=== PATIENT | male | born 1975 | race Caucasian/White ===

== ENCOUNTER 2016-12-30 17:31 | Emergency (ER) | payer MEDICAID ==
[2016-12-30] MEDS ORDERED: LORazepam 0.5 MG TABLET PO STA ×2 (19:03→19:04)
[2016-12-30] MEDS ORDERED: cloNIDine 0.1 MG TABLET PO STA (19:04)
[2016-12-30] MEDS ORDERED: ONDANSETRON ODT 4 MG Prepack 2 TL PRN (19:04)
[2016-12-30] MEDS ORDERED: PROMETHAZINE 25 MG TABLET PO STA (19:04)
--- NOTE | 2016-12-30 19:06 | ED Physician Documentation ---
PD HPI NVD - Stated complaint Stated Complaint: W/DRAWL SYMPTOMS - Chief complaint Chief Complaint: General - History obtained from History obtained from: Patient - History of Present Illness Timing - onset: Today (he feels he is having narcotic withdrawal symptoms, having been regular use and then stopped it 2-3 days ago. Has not had any long sober period and has not had significant withdrawal symptoms previously. Having body aches, nausea, shaky, vomiting, and general shakiness) Timing - details: Abrupt onset, Still present Associated symptoms: Loss of appetite. No: Near syncope / syncope, Dysuria, Hematuria Contributing factors: No: Sick contact, Bad food, Travel Similar symptoms before: Has not had sx before Recently seen: Emergency Dept Review of Systems Constitutional: reports: Chills, Myalgias, Fatigue. denies: Fever Nose: denies: Rhinorrhea / runny nose, Congestion Throat: denies: Oral lesions / sores : reports: Dysuria Psychiatric: denies: Depressed, Suicidal Endocrine: denies: Weight loss, Weight gain Immunocompromised: denies: Immunocompromised PD PAST MEDICAL HISTORY - Past Medical History Past Medical History: No - Past Surgical History Past Surgical History: Yes - Present Medications Home Medications: Ambulatory Orders Medication Instructions Recorded Confirmed Lorazepam [Ativan] 2 mg PO TID PRN #30 tablet 12/30/16 Promethazine [Phenergan] 25 - 50 mg PO Q6H PRN #30 tab 12/30/16 cloNIDine [Catapres] 0.1 mg PO BID #15 tablet 12/30/16 - Allergies Allergies/Adverse Reactions: Allergies Allergy/AdvReac Type Severity Reaction Status Date / Time No Known Drug Allergies Allergy Verified 12/30/16 17:47 - Social History Does the pt smoke?: No Smoking Status: Never smoker Does the pt drink ETOH?: Yes ETOH Use: Liquor Does the pt have substance abuse?: No - Immunizations Immunizations are current?: Yes - POLST Patient has POLST: No PD ED PE NORMAL - Vitals Vital signs reviewed: Yes - General General: Alert and oriented X 3, No acute distress, Well developed/nourished - HEENT HEENT: Atraumatic, Pharynx benign - Neck Neck: Supple, no meningeal sign, No adenopathy - Cardiac Cardiac: RRR, No murmur - Respiratory Respiratory: Clear bilaterally - Abdomen Abdomen: Soft, Non tender - Back Back: No CVA TTP - Derm Derm: Normal color, Warm and dry, No rash - Extremities Extremities: No tenderness to palpate, Normal ROM s pain, No edema, No calf tenderness / cord - Neuro Neuro: Alert and oriented X 3, No motor deficit, Normal speech - Psych Psych: Normal mood, Normal affect, Other (minimal shaking here.) Results - Vitals Vitals: Vital Signs - 24 hr 12/30/16 12/30/16 17:44 19:11 Temperature 36.7 C 36.7 C Heart Rate 104 H 88 Respiratory 14 18 Rate Blood Pressure 150/92 H 156/103 H O2 Saturation 100 99 Oxygen O2 Source Room air PD MEDICAL DECISION MAKING - ED course Complexity details: considered differential (he is interested in inpatient treatment. SW not here [facility] don't have access to which programs accept his insurance, etc. He is wanting then to get discharge with meds to be taking. Did not feel that labs were needed at this point. ), d/w patient Departure - Departure Disposition: 01 Home, Self Care Clinical Impression: Acute narcotic withdrawal Nausea & vomiting Qualifiers: Vomiting type: unspecified Vomiting Intractability: non-intractable Qualified Code(s): R11.2 - Nausea with vomiting, unspecified Condition: Stable Record reviewed to determine appropriate education?: Yes Instructions: ED Withdrawal Narcotic Follow-Up: [facility] [Provider Group] Prescriptions: Lorazepam [Ativan] 2 mg PO TID PRN #30 tablet PRN Reason: Anxiety cloNIDine [Catapres] 0.1 mg PO BID #15 tablet Promethazine [Phenergan] 25 - 50 mg PO Q6H PRN #30 tab PRN Reason: Nausea / Vomiting Comments: Drink lots of fluids. Good for you to want to stop the heroin/narcotic use. For the withdrawal symptoms, take Clonidine twice daily for a week. Lorazepam 2 mg every 6-8 hours as needed for withdrawal shakes and symptoms (more or less often as needed) and try to stretch out the interval and lessen amount of it over a week to "soft landing" the withdrawal. Promethazine as needed for nausea. Call/go to some of the Substance abuse programs listed in the Resource book (such as [facility] in [place], or [facility] in [place]) that are clearinghouse spots for some of the inpatient/outpatient programs. Otherwise can return to ED during the day when our Social Workers are typically available to help with resources. Discharge Date/Time: 12/30/16 19:20
[2016-12-30 19:11] VITALS: BP 156/103
[2016-12-30] MEDS ORDERED: PROMETHAZINE 25 MG TABLET ONE (19:11)
[2016-12-30] MEDS ORDERED: cloNIDine 0.1 MG TABLET ONE (19:11)
[2016-12-30] MEDS ORDERED: LORazepam 0.5 MG TABLET ONE (19:11)
[2016-12-30] MEDS ORDERED: ONDANSETRON ODT 4 MG Prepack 2 TL ONE (19:11)
== END 2016-12-30 19:20 | disposition home or self-care (01) ==
LOC: ED 17:31
DX: F11.23 Opioid dependence with withdrawal (principal); R11.2 Nausea with vomiting, unspecified
CPT/HCPCS: 99283; A9270; Q0169

== ENCOUNTER 2017-01-20 19:56 | Outpatient (CLI) | payer MEDICAID | END 2017-01-20 19:57 | disposition critical access hospital (66) | LOC: EMS 19:56 | PROVIDERS: ATTEND Surgery | DX: R07.9 Chest pain, unspecified (principal) | CPT/HCPCS: A0425; A0429 ==

== ENCOUNTER 2017-01-20 20:09 | Emergency (ER) | payer MEDICAID ==
--- NOTE | 2017-01-20 20:59 | ED Physician Documentation ---
PD HPI CHEST PAIN - Stated complaint Stated Complaint: CP/ANXIETY - Chief complaint Chief Complaint: MHE - History obtained from History obtained from: Patient, EMS - History of Present Illness Timing - onset: Today Timing - onset during: Rest Timing - details: Abrupt onset, Now resolved Quality: Pressure, Tightness Location: Substernal Improved by: Rest Associated symptoms: Shortness of air, Diaphoresis. No: Nausea, Vomiting, Feeling faint / dizzy Similar symptoms before: No diagnosis Recently seen: Not recently seen - Additional information Additional information: Patient is a 41 year old male with a history of anxiety and heroin abuse who is presenting to the emergency deaprtment for chest pain. patient states that he had been clean for 12 days. patient states that today he did some heroin after having a panic attack. he states that he normally gets panic attacks but this sensation felt like it lasted hours so patient called ems. Upon initial evaluation in the emergency department patient states that his symptoms had resolved. Review of Systems Constitutional: denies: Fever, Chills Eyes: denies: Decreased vision, Photophobia Ears: denies: Ear pain, Drainage/discharge Nose: denies: Congestion Throat: denies: Dental pain / toothache, Sore throat Cardiac: reports: Chest pain / pressure, Palpitations Respiratory: denies: Cough, Wheezing GI: reports: Nausea. denies: Vomiting, Constipation, Diarrhea Musculoskeletal: denies: Neck pain, Back pain, Extremity pain Neurologic: denies: Generalized weakness, Confused, Altered mental status, Headache, Head injury, LOC Psychiatric: reports: Anxiety Immunocompromised: denies: Immunocompromised PD PAST MEDICAL HISTORY - Past Surgical History Past Surgical History: Yes - Allergies Allergies/Adverse Reactions: Allergies Allergy/AdvReac Type Severity Reaction Status Date / Time No Known Drug Allergies Allergy Verified 12/30/16 17:47 - Social History Does the pt smoke?: No Smoking Status: Never smoker Does the pt drink ETOH?: Yes Does the pt have substance abuse?: No - Immunizations Immunizations are current?: Yes - POLST Patient has POLST: No PD ED PE NORMAL - Vitals Vital signs reviewed: Yes - General General: Alert and oriented X 3, No acute distress - HEENT HEENT: Atraumatic, PERRL, Pharynx benign - Neck Neck: Supple, no meningeal sign, No JVD - Cardiac Cardiac: RRR, No murmur - Respiratory Respiratory: No respiratory distress, Clear bilaterally - Abdomen Abdomen: Non distended - Derm Derm: Normal color, Warm and dry, No rash - Extremities Extremities: No deformity, No edema - Neuro Neuro: Alert and oriented X 3, No motor deficit, No sensory deficit, Normal speech - Psych Psych: Normal mood PD ED PE EXPANDED - General General: Disheveled, poorly kept Results - Vitals Vitals: Vital Signs - 24 hr 01/20/17 20:10 Temperature 36.5 C Heart Rate 99 Respiratory 18 Rate Blood Pressure 134/99 H O2 Saturation 100 Oxygen O2 Source Room air - EKG (time done) 2018 Rate: Rate (enter#) (96) Rhythm: NSR [place]: Normal Intervals: Normal ID QRS: Normal Ischemia: ST elevation c/w repol Compare to prior EKG: Changed from prior EKG Computer interpretation: Agree with computer - Labs Labs: Laboratory Tests 01/20/17 20:40 Troponin I < 0.04 PD MEDICAL DECISION MAKING - ED course Complexity details: reviewed old records, reviewed results, re-evaluated patient , considered differential, d/w patient ED course: Patient was seen and examined at bedside. Patient stated that he was feeling better. ekg and troponin were negative. Patient was HEART and PERC negative. patient required no further work up and was stable for discharge with outpatient follow up. Departure - Departure Disposition: 01 Home, Self Care Clinical Impression: Anxiety Condition: Good Instructions: ED Stress React Follow-Up: primary,care provider [Other] - Within 1 week Comments: Your diagnostics today were within normal limits. Your symptoms are unlikely cardiac in nature. It is important that you go to your follow up appointment on the . You should refrain from drug abuse. You may return to the emergency department at any time for new, worsening or uncontrollable symptoms.
[2017-01-20 21:17] VITALS: BP 132/79
== END 2017-01-20 21:17 | disposition home or self-care (01) ==
LOC: EDUNIT# → ED 20:09
DX: F41.9 Anxiety disorder, unspecified (principal); R11.0 Nausea; F11.10 Opioid abuse, uncomplicated
CPT/HCPCS: 36415; 84484; 93005; 99283

== ENCOUNTER 2018-05-04 22:31 | Inpatient (IN) | payer MEDICAID ==
[2018-05-04] MEDS ORDERED: oxyCODONE 5 MG TABLET PO STA (23:06)
--- NOTE | 2018-05-04 23:09 | ED Physician Documentation ---
History of Present Illness - Stated complaint Stated Complaint: LT LEG INF/SWELLING - Chief complaint Chief Complaint: Ext Problem - Additonal information Additional information: hx from pt 42 male IVDA heroin user states tested for and neg for HIV and hepatitis to ED with LLE pain and swelling no CP or SOA no fever no injury recalled states no long travel or falling asleep /passing on on the that leg states does not uses that legs for drug access Review of Systems Constitutional: denies: Fever, Chills Cardiac: denies: Chest pain / pressure Respiratory: denies: Dyspnea GI: denies: Abdominal Pain Musculoskeletal: reports: Extremity pain, Extremity swelling Endocrine: denies: Easy bruising / bleeding Immunocompromised: denies: Immunocompromised PD PAST MEDICAL HISTORY - Past Surgical History Past Surgical History: Yes - Present Medications Home Medications: Ambulatory Orders Medication Instructions Recorded Confirmed No Known Home Medications 05/04/18 05/04/18 - Allergies Allergies/Adverse Reactions: Allergies Allergy/AdvReac Type Severity Reaction Status Date / Time No Known Drug Allergies Allergy Verified 05/04/18 22:38 - Social History Does the pt smoke?: No Smoking Status: Never smoker Does the pt drink ETOH?: Yes Does the pt have substance abuse?: No - Immunizations Immunizations are current?: Yes - POLST Patient has POLST: No PD ED PE NORMAL - Vitals Vital signs reviewed: Yes (tachy no fever) - General General: Alert and oriented X 3 - Cardiac Cardiac: RRR - Respiratory Respiratory: No respiratory distress - Derm Derm: Other (ant thigh red and hot) - Extremities Extremities: Other (entire LLE is swollen from foot to groin, no cord, no open wound though feet are poorly cared for, thigh is hot and red tight and very tender but no focal abscess swelling / head/ drainage etc, MSV intact, hurts to move thogh but no pain with passive ROM to lower leg, no pallor, nl sensation) Results - Vitals Vitals: Vital Signs - 24 hr 05/04/18 22:33 Temperature 36.6 C Heart Rate 107 H Respiratory 16 Rate Blood Pressure 147/97 H O2 Saturation 100 Oxygen O2 Source Room air - Labs Labs: Microbiology 05/05/18 02:13 Wound Culture - Preliminary Left Lower Extremity - Abscess Laboratory Tests 05/04/18 05/04/18 05/05/18 00:50 23:15 02:09 WBC 9.6 RBC 4.41 L Hgb 12.8 L Hct 39.5 L MCV 89.5 MCH 29.0 MCHC 32.4 RDW 13.9 Plt Count 401 MPV 7.4 Neut # (Auto) 6.5 Lymph # (Auto) 1.7 [place] # (Auto) 1.0 Eos # (Auto) 0.4 Baso # (Auto) 0.1 Absolute Nucleated RBC 0.00 Nucleated RBC % 0.1 Sodium 135 Potassium 4.0 Chloride 102 Carbon Dioxide 26 Anion Gap 7.0 BUN 11 Creatinine 1.2 Estimated GFR (MDRD) 67 L Glucose 98 Calcium 8.4 L Total Bilirubin 0.3 Direct Bilirubin 0.1 AST 23 ALT 25 Alkaline Phosphatase 114 Total Creatine Kinase 72 64 Total Protein 6.7 Albumin 2.9 L Globulin 3.8 Urine Color Urine Clarity Urine pH Ur Specific [place] Urine Protein Urine Glucose (UA) Urine Ketones Urine Occult Blood Urine Nitrite Urine Bilirubin Urine Urobilinogen Ur Leukocyte Esterase Urine RBC Urine WBC Ur Squamous Epith Cells Urine Bacteria Urine Culture Comments Urine Opiates Screen Ur Oxycodone Screen Urine Methadone Screen Ur Propoxyphene Screen Ur Barbiturates Screen Ur Tricyclics Screen Ur Phencyclidine Scrn Ur Amphetamine Screen U Methamphetamines Scrn U Benzodiazepines Scrn Urine Cocaine Screen U Cannabinoids Screen 05/05/18 02:13 WBC RBC Hgb Hct MCV MCH MCHC RDW Plt Count MPV Neut # (Auto) Lymph # (Auto) [place] # (Auto) Eos # (Auto) Baso # (Auto) Absolute Nucleated RBC Nucleated RBC % Sodium Potassium Chloride Carbon Dioxide Anion Gap BUN Creatinine Estimated GFR (MDRD) Glucose Calcium Total Bilirubin Direct Bilirubin AST ALT Alkaline Phosphatase Total Creatine Kinase Total Protein Albumin Globulin Urine Color YELLOW Urine Clarity CLEAR Urine pH 7.0 Ur Specific [place] 1.020 Urine Protein NEGATIVE Urine Glucose (UA) NEGATIVE Urine Ketones NEGATIVE Urine Occult Blood NEGATIVE Urine Nitrite NEGATIVE Urine Bilirubin NEGATIVE Urine Urobilinogen 1 (NORMAL) Ur Leukocyte Esterase NEGATIVE Urine RBC None Seen Urine WBC 0-3 Ur Squamous Epith Cells NONE SEEN Urine Bacteria None Seen Urine Culture Comments NOT INDICATED Urine Opiates Screen POSITIVE H Ur Oxycodone Screen NEGATIVE Urine Methadone Screen NEGATIVE Ur Propoxyphene Screen NEGATIVE Ur Barbiturates Screen NEGATIVE Ur Tricyclics Screen NEGATIVE Ur Phencyclidine Scrn NEGATIVE Ur Amphetamine Screen POSITIVE H U Methamphetamines Scrn POSITIVE H U Benzodiazepines Scrn POSITIVE H Urine Cocaine Screen NEGATIVE U Cannabinoids Screen NEGATIVE - Rads (name of study) duplex Radiology: See rad report (no DVT) ST sono Radiology: See rad report (complex intramuscular fluid collection at leats 8 X 8.8 X 3.5 cm ddx is abscess or hemaotma, no FB seen, consider CT or MRI) CT LLE Radiology: See rad report (myositis 10 cm X 11 cm abnormal anterior thigh likely abscess but wthout contrast study is limited (no access for IV con) ) PD MEDICAL DECISION MAKING - ED course ED course: no DVT on duplex ST sono and subsequent CT (without con due to poor IV access due to IVDA - has an IV but conservation technician does not feel is it safe for IV contrast) show what appears to be a pyomyositis of the L ant cmpt quad mm group mid to distal left thigh - no gas, no FB - c/w myositis or pyomyositis no fever and nl WBC but leg ning thigh is hot red warm swollen favoring infectious cause thigh is swollen and firm to touch but has pulses sensation and motor distally, CT report indicates more than one cmpt involved and that there is fat stranding between cmpts - and sono shows complex fluid collection - so doubt this is cmpt syndrome no necrosis crepitus of subcut gas to suggest nec fasc after looking at CT images and pt leg attempted 18 guage needle I&D of most tender swollen site to obtain a culture -no pus only blood return but will send that for culture d/w ortho production supv Dr Grewal who agrees with plan to admit to hospitalist and tx with IV ab with ortho consult for possible surgery in the morning spoke to Dr Gonzalez hospitalist at 2 AM and she will admit to inpt pt and family updated Departure - Departure Disposition: 66 [facility] DC/Xfer Clinical Impression: Pyomyositis Condition: Fair Discharge Date/Time: 05/05/18 03:04
[2018-05-04 23:23] LABS: BASOPHILS # (AUTO) 0.1 10^3/uL (0.0-0.1); BASOPHILS % (AUTO) 0.9 %; EOSINOPHILS # (AUTO) 0.4 10^3/uL (0.0-0.7); EOSINOPHILS % (AUTO) 3.7 %; HGB - HEMOGLOBIN 12.8 g/dL (14.0-18.0); LYMPHOCYTES # (AUTO) 1.7 10^3/uL (1.5-3.5); LYMPHOCYTES % (AUTO) 17.3 %; MEAN CORPUSCULAR HGB CONC 32.4 g/dL (32.0-36.0); MEAN CORPUSCULAR VOLUME 89.5 fL (80.0-94.0); MEAN PLATELET VOLUME 7.4 fL (7.4-11.4); MONOCYTES % (AUTO) 10.2 %; NEUTROPHILS # (AUTO) 6.5 10^3/uL (1.5-6.6); NEUTROPHILS % (AUTO) 67.9 %; PLT - PLATELET COUNT 401 10^3/uL (130-450); RED BLOOD COUNT 4.41 10^6/uL (4.70-6.10); RED CELL DISTRIBUTION WIDTH 13.9 % (12.0-15.0); WHITE BLOOD COUNT 9.6 x10^3/uL (4.8-10.8)
[2018-05-05 01:05] LABS: CALCIUM 8.4 mg/dL (8.5-10.3); CREATININE 1.2 mg/dL (0.6-1.2)
--- NOTE | 2018-05-05 01:06 | Ultrasound Report ---
Reason: LLE pain and swelling Procedure Date: 05/04/2018 Accession Number: [id number] / [id number] Procedure: US - Duplex Ext Veins Left CPT Code: FULL RESULT: EXAM: LEFT LOWER EXTREMITY VENOUS ULTRASOUND EXAM DATE: 05/04/2018 11:37 PM. CLINICAL HISTORY: LLE pain and swelling. COMPARISON: None. TECHNIQUE: Real-time sonographic vascular imaging was performed by the swimming pool salesperson through the lower extremity utilizing both color-flow and Doppler spectral analysis. Multiple retail field representative static images were saved for review. FINDINGS: Common Femoral Vein (CFV): Normal. CFV-GSV Junction: Normal. Profunda Femoral Vein (PFV): Normal. Femoral Vein (FV) Prox: Normal. Femoral Vein (FV) Mid: Normal. Femoral Vein (FV) Dist: Normal. Popliteal Vein: Normal. Posterior Tibial Veins: Normal. Peroneal Veins: Normal. Contralateral Side CFV: Normal. Other: Prominent left inguinal node noted. IMPRESSION: No evidence for deep venous thrombosis. RADIA
--- NOTE | 2018-05-05 01:10 | Ultrasound Report ---
Reason: LLE swelling, ant thigh more so and hot Procedure Date: 05/04/2018 Accession Number: [id number] / [id number] Procedure: US - Ext Limited Non Vascular CPT Code: FULL RESULT: EXAM: LEFT LOWER EXTREMITY ULTRASOUND - LIMITED EXAM DATE: 05/04/2018 11:50 PM. CLINICAL HISTORY: LLE swelling, anterior thigh more so and hot. COMPARISON: None. TECHNIQUE: Real-time scanning was performed with static images obtained. FINDINGS: In the region of clinical concern, there is a complex intramuscular fluid collection without a definite mass or vascularity. Collection measures at least 8 x 8.8 x 3.5 cm. No additional masses or adenopathy. Remaining subcutaneous soft tissues are normal. IMPRESSION: In the region of clinical concern, there is a complex intramuscular fluid collection with internal debris. No vascularity. Differential includes an abscess and hematoma. Correlate clinically. No additional mass or adenopathy. If symptoms persist, enlarge or become more painful, recommend contrast-enhanced CT or MRI examination. RADIA
--- NOTE | 2018-05-05 01:34 | CT Report ---
Reason: LLE swelling, thigh hot and red, ? deep abscess Procedure Date: 05/05/2018 Accession Number: [id number] / [id number] Procedure: CT - Lower Extremity Left W/O CPT Code: FULL RESULT: EXAM: LEFT LOWER EXTREMITY CT WITHOUT CONTRAST EXAM DATE: 05/05/2018 01:11 AM. CLINICAL HISTORY: LLE swelling, thigh hot and red, ? deep abscess. COMPARISON: EXT LIMITED NON VASCULAR 05/04/2018 11:50 PM. TECHNIQUE: Thin-section axial images were acquired of the left hip to left foot and ankle without contrast. Post-processing: Coronal and sagittal reformats. Other: None. In accordance with CT protocol optimization, one or more of the following dose reduction techniques were utilized for this exam: automated exposure control, adjustment of mA and/or KV based on patient size, or use of iterative reconstructive technique. FINDINGS: Bones: No fracture or bone lesion. Joints: The joint spaces are preserved. No calcified loose bodies. No large effusion. Musculature: The muscles in the anterior left mid and distal thigh have lost their normal striated appearance. The muscles are also edematous. No definite well-defined loculated collection identified. In addition, abnormal fat stranding and edema is noted between the muscle compartments. No intramuscular gas. Other: No Lemos's cyst. Extensive soft tissue edema from the proximal left thigh to the ankle. Prominent left inguinal nodes are noted measuring up to 2.5 x 1.2 cm. No drainable collection is noted in the subcutaneous soft tissues. IMPRESSION: 1. Significant limitations due to the absence of intravenous contrast. 2. Abnormal edema and enlargement and loss of the normal intramuscular striations in the anterior compartment of the mid and distal left thigh. At a minimum, findings are compatible with myositis. Occult abscess not excluded. Associated intramuscular fascial edema and fat stranding. No associated soft tissue gas. 3. No fractures. No destructive bony process concerning for osteomyelitis. RADIA
[2018-05-05] MEDS ORDERED: VANCOMYCIN INJ 1 GM in SODIUM CHLORIDE 0.9% 500 ML IV STA (01:55)
[2018-05-05] MEDS ORDERED: PIPERACILLIN/TAZOBACTAM 3.375 GM in SODIUM CHLORIDE 0.9% MINIBAG 100 ML IV STA (01:55)
[2018-05-05 02:14] LABS: MUDS CUTOFF CONCENTRATIONS CUTOFF CONC BELOW:
[2018-05-05 02:16] LABS: BILIRUBIN,URINE NEGATIVE (NEGATIVE); GLUCOSE, URINE (UA) NEGATIVE (NEGATIVE); KETONES,URINE (UA) NEGATIVE (NEGATIVE); LEUKOCYTE ESTERASE, URINE NEGATIVE (NEGATIVE); NITRITE,URINE NEGATIVE (NEGATIVE); OCCULT BLOOD,URINE NEGATIVE (NEGATIVE); PROTEIN,URINE NEGATIVE (NEGATIVE); UROBILINOGEN,URINE 1 (NORMAL) E.U./dL (NORMAL)
[2018-05-05 02:17] LABS: BACTERIA,URINE None Seen /HPF (None Seen); CLARITY,URINE CLEAR (CLEAR); RBC,URINE None Seen /HPF (0-5); SQUAMOUS EPITHELIAL CELL,UR NONE SEEN (<= Few)
[2018-05-05 02:28] LABS: AMPHETAMINE SCREEN,URINE POSITIVE (NEGATIVE); BENZODIAZEPINES SCREEN, URINE POSITIVE (NEGATIVE); COCAINE SCREEN URINE NEGATIVE (NEGATIVE); METHAMPHETAMINES SCREEN, URINE POSITIVE (NEGATIVE); OPIATE SCREEN, URINE POSITIVE (NEGATIVE)
[2018-05-05 02:29] LABS: METHADONE SCREEN, URINE NEGATIVE (NEGATIVE); OXYCODONE SCREEN, URINE NEGATIVE (NEGATIVE); PROPOXYPHENE SCREEN, URINE NEGATIVE (NEGATIVE); TRICYCLIC ANTIDEPRESSANT,URINE NEGATIVE (NEGATIVE)
[2018-05-05 02:30] LABS: ALBUMIN 2.9 g/dL (3.2-5.5); BILIRUBIN,DIRECT 0.1 mg/dL (0.1-0.5); BILIRUBIN,TOTAL 0.3 mg/dL (0.2-1.0); TOTAL PROTEIN 6.7 g/dL (6.7-8.2)
[2018-05-05] MEDS ORDERED: LOPERAMIDE 2 MG CAPSULE PO PRN (02:30)
[2018-05-05] MEDS ORDERED: HYOSCYAMINE SL 0.125 MG TABLET SL PRN (02:30)
[2018-05-05] MEDS ORDERED: TEMAZEPAM 15 MG CAPSULE PO PRN (02:33)
[2018-05-05] MEDS ORDERED: ONDANSETRON 4 MG/2 ML VIAL IVP PRN (02:33)
[2018-05-05] MEDS ORDERED: ACETAMINOPHEN 325 MG TABLET PO PRN (02:33)
[2018-05-05] MEDS ORDERED: SODIUM CHLORIDE FLUSH 0.9% 10 ML SYRINGE IVP PRN (02:33)
[2018-05-05] MEDS ORDERED: cloNIDine 0.1 MG PATCH TOP SCH (03:00)
[2018-05-05] MEDS ORDERED: VANCOMYCIN PER PHARMACY 100 GM in SODIUM CHLORIDE 0.9% 250 ML IV SCH (03:00)
[2018-05-05] MEDS: LACTATED RINGERS 1,000 ML IV SCH ×3 (03:38→19:06)
[2018-05-05] MEDS: LORazepam 0.5 MG TABLET PO PRN ×2 (03:39→22:25)
[2018-05-05] MEDS: KETOROLAC 15 MG/ML VIAL IVP PRN ×3 (03:40→23:54)
[2018-05-05] MEDS: SODIUM CHLORIDE FLUSH 0.9% 10 ML SYRINGE IVP SCH ×3 (03:44→23:55)
[2018-05-05] MEDS ORDERED: VANCOMYCIN INJ 500 MG in SODIUM CHLORIDE 0.9% MINIBAG 100 ML IV ONE ×2 (04:00→05:00)
--- NOTE | 2018-05-05 07:37 | HISTORY & PHYSICAL EXAMINATION ---
DATE OF SERVICE: 05/05/2018 Physician: Caty Gonzalez MD CHIEF COMPLAINT: Left thigh pain and swelling. HISTORY OF PRESENT ILLNESS: Patient is a 42-year-old, white male with past medical history of drug abuse. He uses IV heroin. Besides the IV route, he also does muscling. He usually injects his arms, but sometimes injects his lower extremities as well. He has been using heroin for more than 2 years. He reports no other medical problem. He denies hospital admission. He never had any skin infections or abscesses. Denies history of MRSA. He was admitted to the hospital only once in his life when he was a child and had a lower extremity fracture. Patient reported that about 3 weeks ago, he noticed swelling of the left thigh. He started limping at that time, but the pain was not severely limiting. Therefore, he kept on using drugs and went on with his usual activities. Three days ago, his left thigh got swollen to the point that it limited him in his activities and his pain became unbearable. Overnight, on May 04 to , he came to the ER requesting evaluation. At the ER, patient had elevated temperature of 37.2 Celsius, his heart rate was 107, blood pressure was 140/90. Oxygen saturation was 98% on room air. He had unremarkable laboratories. However, on physical exam, he had significant swelling of the left thigh. He underwent ultrasound, which did not show a vascular occlusion; however, the ultrasound did show a deep muscle large fluid collection. Subsequently, the ER physician ordered a CT scan, which was a noncontrast study. It showed a significantly large abnormality of the left thigh with edema, myositis, and possibly an abscess. Intramuscular fascial edema and fat stranding were also described. There was no soft tissue gas. On physical exam, the patient did not have a compartment syndrome-like finding, as far as all peripheral pulses were palpable. The case was discussed with the orthopedic surgeon, and I was told that surgery is planned for the morning. PAST MEDICAL HISTORY: None significant. OUTPATIENT MEDICATIONS: Patient does not take medications. SOCIAL HISTORY: Patient smokes cigarettes, uses heroin. Besides the heroin use he admitted, his toxicology screen was positive for amphetamine and methamphetamine. He does not drink alcohol. CODE STATUS: FULL CODE. FAMILY HISTORY: Mother had glioblastoma. FUNCTIONAL STATUS: Patient is an everyday heroin user. He cannot hold a job. His prior occupation was design technician. He does not drive, but that is not because of functional limitation. He ambulates unassisted and, other than the limiting heroin use, he does not have functional limitation. ER workup reviewed per medical record/EMR. PHYSICAL EXAMINATION VITAL SIGNS: Please see listed above at history of present illness. GENERAL: The patient is a well-developed male who was not in distress. MUSCULOSKELETAL: Largely swollen left thigh with erythema and tenderness. Peripheral pulses palpable on both lower extremities. NEUROLOGIC: Alert, oriented, nonfocal. PSYCHIATRIC: Cooperative. CARDIOVASCULAR: S1, S2. Regular tachycardia. RESPIRATORY: Clear to auscultation without wheezes or crackles. ABDOMEN: Soft, benign, nontender. Bowel sounds present. SKIN: Track wolfe on the arms, erythema of the hands, some small scar-like lesions on the lower extremities. LYMPHATIC: Swollen left lower extremity, otherwise no lymphedema. ASSESSMENT AND PLAN/ACTIVE ISSUES/DIAGNOSES 1. Left lower extremity infection with left thigh myositis, possible abscess. Also could have a hematoma deep in the muscle. High risk to develop compartment syndrome. He will be seen by the orthopedic service and will likely go for surgery. In the meantime, the patient is receiving IV Zosyn and vancomycin. Blood cultures were sent. 2. Intravenous drug abuse with heroin and polysubstance abuse, including methamphetamine. Patient has risk for bacteremia. He also has risk to develop heroin withdrawal, which is almost imminent. We will not manage it with IV opiates, rather we will use an oral opiate plus Toradol for pain control. In addition, I ordered Bentyl around the clock and several medications to handle withdrawal symptoms such as Imodium, clonidine, hyoscyamine and Ativan. Our goal should be not to match the patient's heroin habit, but rather to keep him from withdrawal or treat withdrawal symptoms. Notably, the patient requested methadone, stating that he takes it as outpatient. However, I would doubt that this patient would be given methadone by any methadone program, being an active drug user. 3. Hemodynamically stable, but showing borderline septic physiology/at least systemic inflammatory response with heart rate above 100 and elevated temperature, source of sepsis being left lower extremity. PLAN AND ORDERS: Patient is getting admitted as inpatient, will be evaluated by the orthopedic surgery service for surgical intervention. We will continue with IV antibiotics. We will provide DVT prophylaxis, supportive care to avoid heroin withdrawal, symptom control. Added creatinine kinase. FULL CODE. ATTESTATION: I certify that the reasonable expectation for this patient is to remain hospitalized for at least 48 hrs but to discharge within 96 hrs. Time spent with the care of this patient was 50 minutes. TD: 05/05/2018 06:45 YEN
[2018-05-05 07:49] LABS: BASOPHILS % (AUTO) 0.4 %; EOSINOPHILS # (AUTO) 0.3 10^3/uL (0.0-0.7); EOSINOPHILS % (AUTO) 3.1 %; HGB - HEMOGLOBIN 12.9 g/dL (14.0-18.0); LYMPHOCYTES # (AUTO) 1.2 10^3/uL (1.5-3.5); LYMPHOCYTES % (AUTO) 12.5 %; MEAN CORPUSCULAR HEMOGLOBIN 29.4 pg (27.0-31.0); MEAN CORPUSCULAR HGB CONC 34.4 g/dL (32.0-36.0); MEAN CORPUSCULAR VOLUME 85.6 fL (80.0-94.0); MEAN PLATELET VOLUME 7.1 fL (7.4-11.4); MONOCYTES # (AUTO) 0.8 10^3/uL (0.0-1.0); MONOCYTES % (AUTO) 8.9 %; NEUTROPHILS # (AUTO) 7.1 10^3/uL (1.5-6.6); NEUTROPHILS % (AUTO) 75.1 %; PLT - PLATELET COUNT 413 10^3/uL (130-450); RED BLOOD COUNT 4.38 10^6/uL (4.70-6.10); RED CELL DISTRIBUTION WIDTH 13.5 % (12.0-15.0); WHITE BLOOD COUNT 9.5 x10^3/uL (4.8-10.8)
[2018-05-05 08:01] LABS: ALBUMIN/GLOBULIN RATIO 0.8 (1.0-2.2); BILIRUBIN,TOTAL 0.5 mg/dL (0.2-1.0); CALCIUM 8.5 mg/dL (8.5-10.3); CREATININE 1.1 mg/dL (0.6-1.2); MAGNESIUM 2.1 mg/dL (1.7-2.8); TOTAL PROTEIN 6.7 g/dL (6.7-8.2)
[2018-05-05] MEDS: PIPERACILLIN/TAZOBACTAM 3.375 GM in SODIUM CHLORIDE 0.9% MINIBAG 100 ML IV SCH ×3 (08:25→22:25)
[2018-05-05] MEDS: FAMOTIDINE 20 MG/50 ML 50 ML IV SCH ×2 (10:12→23:55)
[2018-05-05] MEDS: DICYCLOMINE 10 MG CAPSULE PO SCH ×4 (10:12→21:04)
[2018-05-05] MEDS: LACTOBACILLUS RHAMNOSUS GG CAPSULE PO SCH (10:12)
[2018-05-05] MEDS: ENOXAPARIN 40 MG/0.4 ML SYRINGE SUBQ SCH (10:12)
[2018-05-05] MEDS: POLYETHYLENE GLYCOL 3350 17 GM PACKET PO SCH (10:13)
[2018-05-05] MEDS ORDERED: GADOBUTROL 10 MMOL/10 ML VIAL ONE (10:45)
--- NOTE | 2018-05-05 11:47 | PROVIDER PROGRESS NOTE ---
Subjective - Prog Note Date Prog Note Date: 05/05/18 - Subjective Pt reports feeling: Improved Subjective: pt is alert and answered questions appropriately when wake him up. He denies pain on his left thigh. he report the tenderness started about 10 days ago and worsening about 4 days ago. he denies IVD injection at his left thigh. He denies fever, chill, chest pain, headache ache, neck stiff. Current Medications - Current Medications Current Medications: Active Medications Acetaminophen (Tylenol) 650 mg PO Q4HR PRN PRN Reason: Pain 1 to 4 Clonidine HCl (Buxaucbc-Exz-0) 1 patch TOP Q7D [facility] Last Admin: 05/05/18 04:32 Dose: Not Given Dicyclomine HCl (Bentyl) 10 mg PO QID [facility] Last Admin: 05/05/18 10:12 Dose: 10 mg Enoxaparin Sodium (Lovenox) 40 mg SUBQ DAILY [facility] Last Admin: 05/05/18 10:12 Dose: 40 mg Hyoscyamine (Levsin) 0.125 mg SL Q6HR PRN PRN Reason: Nausea / Vomiting Lactated Ringer's (Lr) 1,000 mls @ 125 mls/hr IV .Q8H [facility] Last Infusion: 05/05/18 06:15 Dose: 125 mls/hr Piperacillin Sod/Tazobactam (Sod 3.375 gm/ Sodium Chloride) 100 mls @ 200 mls/hr IV Q6H [facility] Last Infusion: 05/05/18 10:06 Dose: Infused Famotidine (Pepcid 20 Mg/50 Ml) 50 mls @ 100 mls/hr IV BID [facility] Last Infusion: 05/05/18 11:39 Dose: Infused Vancomycin HCl 1.25 gm/ Sodium (Chloride) 250 mls @ 167 mls/hr IV Q12H [facility] Ketorolac Tromethamine (Toradol Inj (15mg)) 15 mg IVP Q6HR PRN PRN Reason: PAIN Stop: 05/10/18 02:32 Last Admin: 05/05/18 11:31 Dose: 15 mg Lactobacillus Rhamnosus (Culturelle) 1 cap PO DAILY [facility] Last Admin: 05/05/18 10:12 Dose: 1 cap Loperamide HCl (Imodium) 2 mg PO QID PRN PRN Reason: Diarrhea Lorazepam (Ativan) 1 mg PO Q6H PRN PRN Reason: Anxiety Last Admin: 05/05/18 03:39 Dose: 1 mg Ondansetron HCl (Zofran Inj) 4 mg IVP Q6HR PRN PRN Reason: Nausea / Vomiting Oxycodone HCl (Roxicodone) 10 mg PO Q4HR PRN PRN Reason: PAIN Polyethylene Glycol (Miralax) 17 gm PO DAILY [facility] Last Admin: 05/05/18 10:13 Dose: Not Given Sodium Chloride (Normal Saline Flush 0.9%) 10 ml IVP PRN PRN PRN Reason: NEEDED PER PROVIDER ORDERS Sodium Chloride (Normal Saline Flush 0.9%) 10 ml IVP 0100,0900,1700 [facility] Last Admin: 05/05/18 03:44 Dose: 10 ml Temazepam (Restoril) 15 mg PO QPM PRN PRN Reason: Insomnia No Known Home Medications 05/04/18 Objective - Vital Signs/Intake & Output Reviewed Vital Signs: Yes Vital Signs: Vital Signs x48h Temp Pulse Resp BP Pulse Ox 05/05/18 08:59 36.9 C 89 18 126/81 H 100 Intake & Output: Intake & Output 05/02/18 05/03/18 05/04/18 05/05/18 23:59 23:59 23:59 23:59 Intake Total 875 Output Total 475 Balance 400 - Objective General Appearance: positive: No acute distress, Alert. negative: Lethargic Eyes Bilateral: positive: Normal inspection, PERRL, No lid inflammation, Conjunctivae nml ENT: positive: ENT inspection nml, Pharynx nml, No signs of dehydration. negative: Purulent nasal drainage, Pharyngeal erythema, Oral lesions Neck: positive: Nml inspection, Thyroid nml, No JVD, Trachea midline. negative: Thyromegaly, Lymphadenopathy (R), Lymphadenopathy (L), Stiff neck, Swelling/bruising, Tracheal deviation Respiratory: positive: Chest non-tender, No respiratory distress, Breath sounds nml. negative: Wheezes, Rales, Rhonchi Cardiovascular: positive: Regular rate & rhythm, No murmur, No gallop. negative: Irregularly irregular, Extrasystoles, Tachycardia, Bradycardia, JVD present, Systolic murmur, Diastolic murmur Peripheral Pulses: 2+ Radial (R), 2+ Radial (L), 2+ Dorsalis pedis (R), 2+ Dorsalis pedis (L) Abdomen: positive: Non-tender, No organomegaly, Nml bowel sounds, No distention. negative: Tenderness, Guarding, Rebound Back: positive: Nml inspection. negative: CVA tenderness (R), CVA tenderness (L) Skin: positive: Color nml, No rash, Warm, Dry, Skin rash. negative: Cyanosis, Diaphoresis, Pallor Extremities: negative: Calf tenderness, Joint swelling, Shaq's sign/cords Neurologic/Psychiatric: positive: Oriented x3, Sensation nml, Mood/affect nml. negative: Weakness, Sensory loss, Facial droop, Slurred/abnml speech, Depressed mood/affect - Lab Results Fish Bones: 05/05/18 07:40 05/05/18 07:40 Other Labs: Lab Results x24hrs 05/05/18 05/05/18 05/05/18 Range/Units 07:40 07:40 02:13 WBC 9.5 (4.8-10.8) x10^3/uL RBC 4.38 L (4.70-6.10) 10^6/uL Hgb 12.9 L (14.0-18.0) g/dL Hct 37.5 L (42.0-52.0) % MCV 85.6 (80.0-94.0) fL MCH 29.4 (27.0-31.0) pg MCHC 34.4 (32.0-36.0) g/dL RDW 13.5 (12.0-15.0) % Plt Count 413 (130-450) 10^3/uL MPV 7.1 L (7.4-11.4) fL Neut # (Auto) 7.1 H (1.5-6.6) 10^3/uL Lymph # (Auto) 1.2 L (1.5-3.5) 10^3/uL Butts # (Auto) 0.8 (0.0-1.0) 10^3/uL Eos # (Auto) 0.3 (0.0-0.7) 10^3/uL Baso # (Auto) 0.0 (0.0-0.1) 10^3/uL Absolute Nucleated RBC 0.00 x10^3/uL Nucleated RBC % 0.0 /100WBC Sodium 135 (135-145) mmol/L Potassium 4.7 (3.5-5.0) mmol/L Chloride 105 (101-111) mmol/L Carbon Dioxide 22 (21-32) mmol/L Anion Gap 8.0 (6-13) BUN 11 (6-20) mg/dL Creatinine 1.1 (0.6-1.2) mg/dL Estimated GFR (MDRD) 74 L (>89) Glucose 112 H (70-100) mg/dL Calcium 8.5 (8.5-10.3) mg/dL Magnesium 2.1 (1.7-2.8) mg/dL Total Bilirubin 0.5 (0.2-1.0) mg/dL Direct Bilirubin (0.1-0.5) mg/dL AST 24 (10-42) IU/L ALT 25 (10-60) IU/L Alkaline Phosphatase 110 (42-121) IU/L Total Creatine Kinase (22-269) IU/L Total Protein 6.7 (6.7-8.2) g/dL Albumin 3.0 L (3.2-5.5) g/dL Globulin 3.7 (2.1-4.2) g/dL Albumin/Globulin Ratio 0.8 L (1.0-2.2) Urine Color YELLOW Urine Clarity CLEAR (CLEAR) Urine pH 7.0 (5.0-7.5) PH Ur Specific [place] 1.020 (1.002-1.030) Urine Protein NEGATIVE (NEGATIVE) mg/dL Urine Glucose (UA) NEGATIVE (NEGATIVE) mg/dL Urine Ketones NEGATIVE (NEGATIVE) mg/dL Urine Occult Blood NEGATIVE (NEGATIVE) Urine Nitrite NEGATIVE (NEGATIVE) Urine Bilirubin NEGATIVE (NEGATIVE) Urine Urobilinogen 1 (NORMAL) (NORMAL) E.U./dL Ur Leukocyte Esterase NEGATIVE (NEGATIVE) Urine RBC None Seen (0-5) /HPF Urine WBC 0-3 (0-3) /HPF Ur Squamous Epith Cells NONE SEEN (<= Few) Urine Bacteria None Seen (None Seen) /HPF Urine Culture Comments NOT INDICATED Urine Opiates Screen POSITIVE H (NEGATIVE) Ur Oxycodone Screen NEGATIVE (NEGATIVE) Urine Methadone Screen NEGATIVE (NEGATIVE) Ur Propoxyphene Screen NEGATIVE (NEGATIVE) Ur Barbiturates Screen NEGATIVE (NEGATIVE) Ur Tricyclics Screen NEGATIVE (NEGATIVE) Ur Phencyclidine Scrn NEGATIVE (NEGATIVE) Ur Amphetamine Screen POSITIVE H (NEGATIVE) U Methamphetamines Scrn POSITIVE H (NEGATIVE) U Benzodiazepines Scrn POSITIVE H (NEGATIVE) Urine Cocaine Screen NEGATIVE (NEGATIVE) U Cannabinoids Screen NEGATIVE (NEGATIVE) 05/05/18 05/04/18 05/04/18 Range/Units 02:09 23:15 00:50 WBC 9.6 (4.8-10.8) x10^3/uL RBC 4.41 L (4.70-6.10) 10^6/uL Hgb 12.8 L (14.0-18.0) g/dL Hct 39.5 L (42.0-52.0) % MCV 89.5 (80.0-94.0) fL MCH 29.0 (27.0-31.0) pg MCHC 32.4 (32.0-36.0) g/dL RDW 13.9 (12.0-15.0) % Plt Count 401 (130-450) 10^3/uL MPV 7.4 (7.4-11.4) fL Neut # (Auto) 6.5 (1.5-6.6) 10^3/uL Lymph # (Auto) 1.7 (1.5-3.5) 10^3/uL Butts # (Auto) 1.0 (0.0-1.0) 10^3/uL Eos # (Auto) 0.4 (0.0-0.7) 10^3/uL Baso # (Auto) 0.1 (0.0-0.1) 10^3/uL Absolute Nucleated RBC 0.00 x10^3/uL Nucleated RBC % 0.1 /100WBC Sodium 135 (135-145) mmol/L Potassium 4.0 (3.5-5.0) mmol/L Chloride 102 (101-111) mmol/L Carbon Dioxide 26 (21-32) mmol/L Anion Gap 7.0 (6-13) BUN 11 (6-20) mg/dL Creatinine 1.2 (0.6-1.2) mg/dL Estimated GFR (MDRD) 67 L (>89) Glucose 98 (70-100) mg/dL Calcium 8.4 L (8.5-10.3) mg/dL Magnesium (1.7-2.8) mg/dL Total Bilirubin 0.3 (0.2-1.0) mg/dL Direct Bilirubin 0.1 (0.1-0.5) mg/dL AST 23 (10-42) IU/L ALT 25 (10-60) IU/L Alkaline Phosphatase 114 (42-121) IU/L Total Creatine Kinase 64 72 (22-269) IU/L Total Protein 6.7 (6.7-8.2) g/dL Albumin 2.9 L (3.2-5.5) g/dL Globulin 3.8 (2.1-4.2) g/dL Albumin/Globulin Ratio (1.0-2.2) Urine Color Urine Clarity (CLEAR) Urine pH (5.0-7.5) PH Ur Specific [place] (1.002-1.030) Urine Protein (NEGATIVE) mg/dL Urine Glucose (UA) (NEGATIVE) mg/dL Urine Ketones (NEGATIVE) mg/dL Urine Occult Blood (NEGATIVE) Urine Nitrite (NEGATIVE) Urine Bilirubin (NEGATIVE) Urine Urobilinogen (NORMAL) E.U./dL Ur Leukocyte Esterase (NEGATIVE) Urine RBC (0-5) /HPF Urine WBC (0-3) /HPF Ur Squamous Epith Cells (<= Few) Urine Bacteria (None Seen) /HPF Urine Culture Comments Urine Opiates Screen (NEGATIVE) Ur Oxycodone Screen (NEGATIVE) Urine Methadone Screen (NEGATIVE) Ur Propoxyphene Screen (NEGATIVE) Ur Barbiturates Screen (NEGATIVE) Ur Tricyclics Screen (NEGATIVE) Ur Phencyclidine Scrn (NEGATIVE) Ur Amphetamine Screen (NEGATIVE) U Methamphetamines Scrn (NEGATIVE) U Benzodiazepines Scrn (NEGATIVE) Urine Cocaine Screen (NEGATIVE) U Cannabinoids Screen (NEGATIVE) ABX Reporting Has patient been on IV antibiotics over the past 48 hours?: Yes Sepsis Event Note (H) - Evaluation Current Stage of Sepsis: Ruled out Assessment/Plan - Problem List (1) Infective myositis, left lower leg Impression: pt present large tenderness, Ct without contrast and US of thigh reveals myositis, but also fluid collection. consult with Dr. Grewal, orthopedics, have MRI for pt keep NPO after today midnight continue antibiotics, Zosyn and Vancomycin IVF of NS pain control lab and vital monitor (2) Intravenous drug abuse Impression: UDS reveals pt is positive Meth/Amphetamine, pt report IV of Heroin as well precaution of pt's IV drug withdrawal, pt did not present Fever, or elevated WBC. will consideration of ECHO to R/O endocarditis if clinic indicated. continue Ativan PRN
--- NOTE | 2018-05-05 12:51 | CONSULTATION NOTE ---
DATE OF SERVICE: 05/05/2018 Physician: Ary Grewal MD REASON FOR CONSULTATION: Left thigh pain and swelling. REQUESTING PHYSICIAN: Anjana Levin MD HISTORY OF PRESENT ILLNESS: Patient is a 42-year-old male who is an IV drug user, who reports a gradual onset of left thigh swelling over a period of a few days, presenting to the emergency room with pain and swelling and evaluated for possible abscess of his thigh. The patient is an extremely poor historian and unwilling to give pertinent information and tending to repeatedly be drowsy and nonconversant, so most of the history is derived from his record. The patient is stated to be negative for HIV and hepatitis. SOCIAL HISTORY: Unknown. The patient states that he does not smoke, but he does drink alcohol and uses IV heroin as well as methamphetamine. PHYSICAL EXAMINATION GENERAL: Exam shows him to be very somnolent and very difficult to arouse, but he has normal pulses and respirations. He seems oriented as to his location and his circumstance. EXTREMITIES: His upper extremities appear unremarkable. His left thigh shows a soft tissue swelling with minimal erythema in the distal third anterolateral thigh on the left. This area is surprisingly not very tender with palpation of the area, and there is no open drainage, and the area surrounding it is not severely cellulitic. The patient is able to move his limb without much pain, including the knee and hip, and he does not seem to have a dramatic adenopathy in the groin area. Neurovascular exam is normal. LABORATORY: Data reveal fairly normal-appearing findings, especially normal white count without a left shift. The patient's drug screen is positive for amphetamines, heroin, opiates, benzodiazepines. The patient's laboratory studies suggest an area of inflammation on CT exam. It is unclear whether the patient has an abscess or just myositis over this area. He is admitted to the hospital for IV antibiotic treatment and further imaging as needed. ASSESSMENT AND PLAN: A 42-year-old male with left thigh swelling, possible myositis versus abscess. The patient will be evaluated further and possibly be a candidate for incision and drainage if it is determined that he has any significant abscess. cc: Anjana Levin M.D. TD: 05/05/2018 11:17 [facility]
[2018-05-05] MEDS: oxyCODONE 5 MG TABLET PO PRN ×3 (12:59→21:57)
[2018-05-05] MEDS: predniSONE 20 MG TABLET PO SCH (14:33)
[2018-05-05] MEDS ORDERED: VANCOMYCIN INJ 1.25 GM in SODIUM CHLORIDE 0.9% 250 ML IV SCH (16:00)
--- NOTE | 2018-05-05 16:28 | MRI Report ---
Reason: severe infection Procedure Date: 05/05/2018 Accession Number: [id number] / [id number] Procedure: MRI - Femur/Thigh LT W/O CPT Code: FULL RESULT: EXAM: LEFT FEMUR/THIGH MRI WITHOUT CONTRAST EXAM DATE: 05/05/2018 11:30 AM. CLINICAL HISTORY: Severe infection. COMPARISON: Lower extremity left w/o 05/05/2018 12:47 AM. TECHNIQUE: Multiplanar, multisequence T1-weighted and fluid-sensitive sequences of the femur/thigh without contrast. Other: The patient refused to cooperate with the study. Only axial images were obtained from the left hip to the mid femur. FINDINGS: Bones: No fractures or subluxations. No marrow edema. No bone lesions. Joint Spaces: Visualized portions of the hip and knee joints are unremarkable on these large [id number] images. Tendons: The visualized hamstring origins are unremarkable. Musculature: There is extensive subcutaneous edema surrounding the mid thigh. More proximally, the edema appears restricted to the anterior and lateral surfaces of the thigh. There is fluid visible in the fascial planes of the anterior compartment. Fluid accumulates deep to the superficial fascia of the anterior/lateral left thigh, overlying the quadriceps. The fluid collection measures approximately 6 x 57 mm image 701/27. At the inferior limit of the image, there is marked edema of the rectus femoris and vastus lateralis and the lateral aspect of the vastus medialis. The findings are suggestive of septic myositis. Other: The visualized sciatic and femoral nerves are unremarkable. The subcutaneous tissues are unremarkable. IMPRESSION: 1. Septic myositis of the rectus femoris, vastus lateralis and vastus medialis. The inferior extent of the inflammation is not included on the images. 2. Fluid in the intermuscular fascia extending from the focus of myositis, into the proximal thigh. There is extensive surrounding subcutaneous edema suggestive of cellulitis. 3. Incomplete study due to lack of patient cooperation. [facility] MUSCULOSKELETAL RADIOLOGY SECTION
[2018-05-05] MEDS: VANCOMYCIN INJ 1 GM, VANCOMYCIN INJ 250 MG in SODIUM CHLORIDE 0.9% 250 ML IV SCH (19:06)
[2018-05-06] MEDS: oxyCODONE 5 MG TABLET PO PRN ×3 (04:26→12:31)
[2018-05-06] MEDS: LORazepam 0.5 MG TABLET PO PRN ×2 (04:26→12:31)
[2018-05-06] MEDS: VANCOMYCIN INJ 1 GM, VANCOMYCIN INJ 250 MG in SODIUM CHLORIDE 0.9% 250 ML IV SCH (04:36)
[2018-05-06] MEDS: PIPERACILLIN/TAZOBACTAM 3.375 GM in SODIUM CHLORIDE 0.9% MINIBAG 100 ML IV SCH (04:36)
[2018-05-06 05:33] LABS: BASOPHILS # (AUTO) 0.1 10^3/uL (0.0-0.1); BASOPHILS % (AUTO) 0.9 %; EOSINOPHILS % (AUTO) 0.1 %; HGB - HEMOGLOBIN 12.4 g/dL (14.0-18.0); LYMPHOCYTES # (AUTO) 1.6 10^3/uL (1.5-3.5); LYMPHOCYTES % (AUTO) 9.8 %; MEAN CORPUSCULAR HEMOGLOBIN 28.5 pg (27.0-31.0); MEAN CORPUSCULAR HGB CONC 32.7 g/dL (32.0-36.0); MEAN CORPUSCULAR VOLUME 87.4 fL (80.0-94.0); MEAN PLATELET VOLUME 7.1 fL (7.4-11.4); MONOCYTES # (AUTO) 0.8 10^3/uL (0.0-1.0); MONOCYTES % (AUTO) 4.6 %; NEUTROPHILS # (AUTO) 14.2 10^3/uL (1.5-6.6); NEUTROPHILS % (AUTO) 84.6 %; PLT - PLATELET COUNT 440 10^3/uL (130-450); RED BLOOD COUNT 4.33 10^6/uL (4.70-6.10); RED CELL DISTRIBUTION WIDTH 13.4 % (12.0-15.0); WHITE BLOOD COUNT 16.8 x10^3/uL (4.8-10.8)
[2018-05-06 05:45] LABS: ALBUMIN 2.9 g/dL (3.2-5.5); ALBUMIN/GLOBULIN RATIO 0.7 (1.0-2.2); BILIRUBIN,TOTAL 0.5 mg/dL (0.2-1.0); CALCIUM 8.7 mg/dL (8.5-10.3); CREATININE 1.1 mg/dL (0.6-1.2)
[2018-05-06 08:25] VITALS: BP 112/72
[2018-05-06] MEDS: DICYCLOMINE 10 MG CAPSULE PO SCH (08:28)
[2018-05-06] MEDS: LACTOBACILLUS RHAMNOSUS GG CAPSULE PO SCH (08:29)
[2018-05-06] MEDS: ENOXAPARIN 40 MG/0.4 ML SYRINGE SUBQ SCH (08:29)
[2018-05-06] MEDS: SODIUM CHLORIDE FLUSH 0.9% 10 ML SYRINGE IVP SCH (08:29)
[2018-05-06] MEDS: POLYETHYLENE GLYCOL 3350 17 GM PACKET PO SCH (08:29)
[2018-05-06] MEDS: predniSONE 20 MG TABLET PO SCH (08:29)
[2018-05-06] MEDS: FAMOTIDINE 20 MG/50 ML 50 ML IV SCH (08:29)
--- NOTE | 2018-05-06 12:57 | Discharge Plan ---
Discharge Plan Disposition: 01 Home, Self Care Condition: Good Prescriptions: Clindamycin HCl [Clindamycin 300MG CAP] 300 mg PO TID #42 capsule Lactobacillus Rhamnosus GG [Culturelle] 1 cap PO DAILY #30 capsule Diet: Regular Activity Restrictions: Activity as Tolerated Shower Restrictions: No Weight Bearing: Full Weight Additional Instructions or Follow Up instructions: You were admitted for a left thigh cellulitis. The MRI was reviewed by our orthopedic surgeon, who does not recommend surgery. You should continue on oral antibiotic for the next 14 days. Please be sure to finished the entire course. Please take a probiotic twice daily for the next month to help with re-building your normal GI tract bacteria. Please see someone on the PCP list within the next week or after finishing the antibiotics. Please report back to the ED if your left thigh becomes more painful, changes colors, or you develop a fever. No Smoking: If you smoke, Please STOP! Call for help.
--- NOTE | 2018-05-06 13:02 | DISCHARGE SUMMARY ---
Discharge Summary Admit Date: 05/05/18 Discharge Date: 05/06/18 Discharging Provider: ADAMARIS Trivedi Primary Care Provider: bobbi PCP Code Status: Attempt Resuscitation Condition at Discharge: Good Discharge Disposition: 01 Home, Self Care - DIAGNOSES Admission Diagnoses: Myositis (M60.9) Cellulitis (L03.90) Heroin dependence (F11.20) Polysubstance abuse (F19.10) Discharge Diagnoses with Status of Each Condition: Myositis (M60.9) ongoing, no surgical interventions as per General surgery. Cellulitis (L03.90) ongoing, patient was prescribed oral antibiotics to be continued at home. Heroin dependence (F11.20) chronic, this likely led to the patient's need to leave the hospital. Polysubstance abuse (F19.10) chronic, stable. Medical non-compliance (Z91.19) Patient was given a list of PCPs, and encouraged to follow up within one week. - HPI History of Present Illness: Rodriguez Lopes is a 42-year old male with a long history of drug abuse with a drug of choice being IV heroin in which he injects into his muscle tissue. He typically uses his arms, but also admits to using his thighs. He denies any other chronic diseases or hospital admissions related to his drug abuse. The patient reports that about 3 weeks ago, he noticed swelling of the left thigh. He started limping at that time, but the pain was not severely limiting. Therefore, he continued to use his drugs by injecting. Three days ago, his left thigh got swollen to the point that it limited him in his activities and his pain became unbearable. Overnight, on May 04 to , he came to the ER requesting an evaluation. Once in the ED, that patient was found to have an elevated temp of 37.2, tachycardia with a heart rate of 106, blood pressure of 140/90. An oxygen saturation of 98% on room air. His labs were unremarkable without a WBC elevation. On exam he was found to have generous swelling of his left thigh. US was negative for vascular occlusion, although did show deep muscle fluid collection. A CT scan showed a large abnormality of the left thigh with edema, myositis, and possible an abscess. Intramuscular fascial edema and fat stranding were also described. There was no soft tissue gas. Orthopedic surgery was consulted with the possibility of an upcoming I & D. He was admitted to inpatient for IV antibiotic treatment and a surgical consult. - HOSPITAL COURSE Hospital Course: The patient was treated with IV antibiotics and Dr. Grewal did not recommend any surgical interventions as he noted that his overall appearance was improved. The patient lost IV access several times with an anesthesiology consult to replace. In the meantime, despite medications, the patient could no longer handle being in the hospital. A wound culture remains negative. The patient was discharged with a long treatment of Clindamycin to be taken TID. He was given a list of PCPs and encouraged to follow up within a week, and was told to return to the ED if similar symptoms occur. - ALLERGIES Allergies/Adverse Reactions: Allergies Allergy/AdvReac Type Severity Reaction Status Date / Time No Known Drug Allergies Allergy Verified 05/04/18 22:38 - MEDICATIONS Home Medications: Ambulatory Orders Medication Instructions Recorded Confirmed Clindamycin HCl [Clindamycin 300MG 300 mg PO TID #42 capsule 05/06/18 CAP] Lactobacillus Rhamnosus GG 1 cap PO DAILY #30 capsule 05/06/18 [Culturelle] - PHYSICAL EXAM AT DISCHARGE General Appearance: positive: Alert, Mild distress, Anxious Eyes Bilateral: positive: PERRL ENT: positive: Pharynx nml, No signs of dehydration Neck: positive: Thyroid nml, No JVD, Trachea midline Respiratory: positive: Chest non-tender, No respiratory distress, Breath sounds nml Cardiovascular: positive: Regular rate & rhythm, No murmur, No gallop, Tachycardia Peripheral Pulses: positive: 2+ Abdomen: positive: Non-tender, Nml bowel sounds Back: positive: Nml inspection Skin: positive: Color nml, No rash, Warm, Dry Extremities: positive: Non-tender, Full ROM, Nml appearance, Pedal edema (left thigh swelling) Neurologic/Psychiatric: positive: Oriented x3, CN's nml (2-12), Motor nml, Sensation nml, Depressed mood/affect Reflexes: Bicep (R): 4+, Bicep (L): 4+, Ankle (R): 3+, Ankle (L): 3+ - LABS Result Diagrams: 05/06/18 05:10 05/06/18 05:10 - DIAGNOSTIC IMAGING Diagnostic Imaging Results: Final report reviewed Diagnostic Imaging Results Comments: EXAM: LEFT LOWER EXTREMITY VENOUS ULTRASOUND EXAM DATE: 05/04/2018 11:37 PM. Other: Prominent left inguinal node noted. IMPRESSION: No evidence for deep venous thrombosis. EXAM: LEFT LOWER EXTREMITY ULTRASOUND - LIMITED EXAM DATE: 05/04/2018 11:50 PM. IMPRESSION: In the region of clinical concern, there is a complex intramuscular fluid collection with internal debris. No vascularity. Differential includes an abscess and hematoma. Correlate clinically. No additional mass or adenopathy. EXAM: LEFT LOWER EXTREMITY CT WITHOUT CONTRAST EXAM DATE: 05/05/2018 01:11 AM. IMPRESSION: 1. Significant limitations due to the absence of intravenous contrast. 2. Abnormal edema and enlargement and loss of the normal intramuscular striations in the anterior compartment of the mid and distal left thigh. At a minimum, findings are compatible with myositis. Occult abscess not excluded. Associated intramuscular fascial edema and fat stranding. No associated soft tissue gas. 3. No fractures. No destructive bony process concerning for osteomyelitis. EXAM: LEFT FEMUR/THIGH MRI WITHOUT CONTRAST EXAM DATE: 05/05/2018 11:30 AM. IMPRESSION: 1. Septic myositis of the rectus femoris, vastus lateralis and vastus medialis. The inferior extent of the inflammation is not included on the images. 2. Fluid in the intermuscular fascia extending from the focus of myositis, into the proximal thigh. There is extensive surrounding subcutaneous edema suggestive of cellulitis. 3. Incomplete study due to lack of patient cooperation. - SEPSIS Current Stage of Sepsis: Ruled out - FOLLOW UP Follow Up: Disposition: Home Prescriptions: Clindamycin HCl [Clindamycin 300MG CAP] 300 mg PO TID #42 capsule Lactobacillus Rhamnosus GG [Culturelle] 1 cap PO DAILY #30 capsule Additional Instructions or Follow Up instructions: You were admitted for a left thigh cellulitis. The MRI was reviewed by our orthopedic surgeon, who does not recommend surgery. You should continue on oral antibiotic for the next 14 days. Please be sure to finished the entire course. Please take a probiotic twice daily for the next month to help with re-building your normal GI tract bacteria. Please see someone on the PCP list within the next week or after finishing the antibiotics. Please report back to the ED if your left thigh becomes more painful, changes colors, or you develop a fever. - TIME SPENT Time Spent in Discharge (Minutes): 25
== END 2018-05-06 13:36 | disposition home or self-care (01) | DRG 558 ==
LOC: ED 22:31 → MS2 05-05 02:33
PROVIDERS: ADMIT Internal Medicine; ATTEND Internal Medicine
DX: M60.052 Infective myositis, left thigh (principal); F11.20 Opioid dependence, uncomplicated; L03.116 Cellulitis of left lower limb; F19.10 Other psychoactive substance abuse, uncomplicated; Z91.19 Patient's noncompliance with other medical treatment and regimen; F17.210 Nicotine dependence, cigarettes, uncomplicated; F15.10 Other stimulant abuse, uncomplicated
CPT/HCPCS: 10160; 36415; 76882; 80048; 80053; 80076; 80306; 81001; 82550; 83605; 83735; 85025; 85651; 87070; 87086; 87205; 96365; 99283; 99284

== ENCOUNTER 2023-09-28 10:14 | Outpatient (CLI) | payer MEDICAID | END 2023-09-28 23:59 | disposition short-term general hospital (02) | LOC: EMS 10:14 | DX: K59.00 Constipation, unspecified (principal); R10.31 Right lower quadrant pain; R10.32 Left lower quadrant pain; L03.115 Cellulitis of right lower limb; L03.116 Cellulitis of left lower limb; R42 Dizziness and giddiness; R06.02 Shortness of breath | CPT/HCPCS: A0425; A0429; A0999 ==

== ENCOUNTER 2023-10-04 01:18 | Outpatient (CLI) | payer MEDICAID | END 2023-10-04 23:41 | disposition short-term general hospital (02) | LOC: EMS 01:18 | DX: M79.672 Pain in left foot (principal); M79.671 Pain in right foot; M79.604 Pain in right leg; M25.551 Pain in right hip; M25.552 Pain in left hip; M25.561 Pain in right knee; M25.562 Pain in left knee | CPT/HCPCS: A0425; A0429; A0999 ==